=== PATIENT | male | born 2000 | race Caucasian/White ===

== ENCOUNTER 2022-12-22 12:34 | Emergency (ER) | payer MEDICAID ==
--- NOTE | 2022-12-22 12:42 | NUR ---
Patient to ER bed 07 to gown for evaluation. Side rails up.
[2022-12-22 12:46] VITALS: BP_SYST 138
--- NOTE | 2022-12-22 12:50 | NUR ---
Dr Rudd evaluating patient at bedside
[2022-12-22] MEDS ORDERED: SULF1TAB48 PO (12:53)
[2022-12-22] MEDS ORDERED: CHLO118L TP (12:53)
--- NOTE | 2022-12-22 13:07 | NUR ---
Patient given written and verbal discharge instructions and verbalizes understanding. ER MD discussed with patient the results and treatment provided. Patient in stable condition. ID arm band removed. Rx of hibiclens given. 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 Opportunity for questions provided and answered. Medication side effect fact sheet provided.
[2022-12-22 13:08] VITALS: BP_SYST 122
== END 2022-12-22 13:08 | disposition home or self-care (01) ==
LOC: SED 12:34
DX: L02.212 Cutaneous abscess of back [any part, except buttock and flank] (principal); R22.2 Localized swelling, mass and lump, trunk; Z79.899 Other long term (current) drug therapy
CPT/HCPCS: 99282

== ENCOUNTER 2023-02-04 03:26 | Emergency (ER) | payer BC, MEDICAID ==
[~2023-02-04] VITALS: Ht 185.4 cm; Wt 79.4 kg
[~2023-02-04 03:26] MED LIST: CHLO118L TP; SULF1TAB48 PO
[2023-02-04 03:46] VITALS: BP_SYST 141
[2023-02-04] MEDS ORDERED: AUG875 PO (04:15)
[2023-02-04] MEDS ORDERED: NAPR-1172 PO (04:15)
[2023-02-04] MEDS ORDERED: ACETAMINOPHEN/CODEINE 300 MG-30 MG TABLET PO ONE (04:15)
[2023-02-04 04:34] VITALS: BP_SYST 138
== END 2023-02-04 04:29 | disposition home or self-care (01) ==
LOC: SED 03:26
DX: H65.192 Other acute nonsuppurative otitis media, left ear (principal); H92.02 Otalgia, left ear; Z79.899 Other long term (current) drug therapy
CPT/HCPCS: 99283